=== PATIENT | female | born 1955 | race African-American/Black ===

== ENCOUNTER 2016-09-12 18:35 | Emergency (ER) | payer OTHER ==
--- NOTE | ~2016-09-12 | CR63 ---
[facility] A Service of [facility] RADIOLOGY TEXT RESULTS PATIENT: RAMON MACK LOCATION: SED : 59 UNIT #: [id number] AGE: [address]: LOTUS SIFUENTES PA-C SEX: F ORDER DR: [id number] [place] [id number] E MR#: [id number] Acc #: [id number] NAME: RAMON MACK. : 1955 SEX: F STUDY DATE/TIME: 09/12/2016 19:45 UNIT: SED ROOM: STUDY DESCRIPTION: CR Chest 2 View Attending Physician: Lotus Sifuentes Pa-C Ordering Physician: Physician Non-Staff Primary Care Physician: Primary Care Physician No MEDICAL IMAGING REPORT This report is preliminary unless electronic signature is present. EXAM Chest 2 views, 09/12/2016 HISTORY Short of air today. Hypertension. No injury. COMMENT 2 views of the chest are reviewed. No prior. No pleural effusion. Mild thoracic degenerative changes. Heart size normal. No congestive failure. No pneumothorax. There is some increased markings the right lower lung probably both patchy increased interstitial markings and some patchy airspace disease. I believe there is some thickening of the central peribronchovascular soft tissues bilaterally. Please correlate for any clinical concern for asthma or bronchitis. Followup to clearing recommended to exclude some underlying developing pneumonia or aspiration on the right. IMPRESSION Increased markings right greater than left lung base and thickening of the central peribronchovascular soft tissues. Please correlate for clinical evidence of asthma or bronchitis. A followup film is recommended to ensure resolution and exclude early aspiration or pneumonia right base. Dictated by... Christin Cherry M.D. THIS IS AN ELECTRONICALLY VERIFIED REPORT Christin Cherry M.D. at 09/13/2016 12:19 PM VALDO/julio [facility] A Service of [facility] RADIOLOGY TEXT RESULTS PATIENT: RAMON MACK LOCATION: SED : 59 UNIT #: [id number] AGE: [address]: LOTUS SIFUENTES PA-C SEX: F ORDER DR: TD: 09/13/2016 11:25 JOB #: [id number] MEDICAL IMAGING REPORT Page 1 of 1
[2016-09-12 18:53] LABS: INFLUENZA A NEG (NEG); INFLUENZA B NEG (NEG)
[2016-09-12 21:50] LABS: BASOPHIL% 0.6 % (0-2.5); EOSINOPHIL% 0.5 % (0.0-7.0); HEMATOCRIT 41.2 % (35.0-45.0); HEMOGLOBIN 13.5 gm/dL (12.0-16.0); LYMPHOCYTE# 0.4 X10e3 (1.0-3.5); LYMPHOCYTE% 4.6 % (17.0-45.0); MEAN CELL VOLUME 81.1 FL (83-96); MEAN CORPUSCULAR HEMOGLOBIN 26.6 PG (28-34); MEAN CORPUSCULAR HGB CONC 32.8 g/dL (30-36); MEAN PLATELET VOLUME 7.8 FL (6.5-11.5); MONOCYTE# 0.8 X10e3 (0-1.0); MONOCYTE% 9.9 % (3.0-12.0); NEUTROPHIL# 6.9 X10e3 (1.5-7.1); NEUTROPHIL% 84.4 % (40-75); PLATELET COUNT 262 X10e3 (140-420); RED BLOOD COUNT 5.09 X10e (3.90-5.30); RED CELL DISTRIBUTION WIDTH 14.2 % (11.0-15.5); WHITE BLOOD COUNT 8.2 X10e3 (4.0-10.5)
[2016-09-12 21:52] LABS: DIFF IND NO
[2016-09-12 22:06] LABS: ALBUMIN SERUM 4.1 g/dL (3.5-5.0); ALKALINE PHOSPHATASE 50 U/L (32-92); ALT (SGPT) 31 U/L (10-40); AST (SGOT) 37 U/L (10-42); BILIRUBIN,TOTAL 0.4 mg/dL (0.2-2.0); BLOOD UREA NITROGEN 10 mg/dL (9-23); BUN/CREATININE RATIO 11.11; CARBON DIOXIDE 27 mmol/L (22-31); CHLORIDE 100 mmol/L (100-111); CREATININE SERUM 0.9 mg/dL (0.6-1.4); GLOM FILT RATE Estimated ABOVE60 mL/min (>60); GLUCOSE FASTING 167 mg/dL (70-110); POTASSIUM 3.9 mmol/L (3.5-5.1); PROTEIN TOTAL SERUM 7.9 g/dL (6.0-8.3); SODIUM 135 mmol/L (135-145)
== END 2016-09-12 22:36 | disposition home or self-care (01) ==
LOC: SED 18:35
PROVIDERS: Emergency Medicine; Physician Assistant
DX: J18.9 Pneumonia, unspecified organism (principal); R51 Headache; I10 Essential (primary) hypertension; E11.9 Type 2 diabetes mellitus without complications
CPT/HCPCS: 36415; 71020; 80053; 82947; 85025; 87651; 87804; 94640; 96360; 96372; 99284; J1885; J2270